=== PATIENT | male | born 1960 | race Caucasian/White ===

== ENCOUNTER → 2018-12-12 | Day surgery (SDC) | payer BC ==
--- NOTE | 2018-12-12 13:39 | RADIOLOGY REPORT (SQ) ---
EXAM DESCRIPTION: PICC INSERTION; FLUORO/CV PLACEMENT; U/S GUIDE FOR VASCULAR ACCESS COMPLETED DATE/TIME: 12/12/2018 1:12 pm REASON FOR STUDY: ACTINOMYCOSIS (A42.9), EXTRNOD MRGNL ZN B-CELL LYMPH OF MUCOSA-ASSOC LYMPHO A42.9 ACTINOMYCOSIS, UNSPECIFIED C88.4 EXTRNOD MRGNL ZN B-CELL LYMPH OF MUCOSA-ASS[place] LYMPHOID COMPARISON: None. FLUOROSCOPY TIME: 0.08 seconds 2 images saved to PACS. TECHNIQUE: Fluoroscopic and ultrasound guided PICC placement. LIMITATIONS: None. PROCEDURE: After written consent and assessment were obtained, the patient was brought into the fluo roscopy room and placed supine on the table. Ultrasound evaluation of potential access sites were per formed. After successfully identifying a patent right brachial vein, the right arm was prepped and dr aped in a sterile fashion along with the ultrasound probe. The entry site was anesthetized with 1% li docaine. A 21 gauge 7 cm needle was advanced through the skin and into the brachial vein under live u ltrasound guidance. An ultrasound image was saved to PACS confirming access site. A .018 guide wire was then inserted through the needle and into the venous system. The needle was then removed and an 11 blade scalpel was used to make a 1cm skin incision. A 5 fr peel-away sheath was advanced over the wire and into the venous system. A measurement was then made using the existing wire and live fluoro scopic guidance. The wire was then removed and trimmed. The PICC was advanced through the peel-away s arabella and into the venous system. The peel-away sheath was removed and the catheter was adhered to th e patients arm with a stat lock. The catheter was then aspirated and flushed and a sterile bandage wa s placed over the access site. A fluoroscopic spot image was saved to PACS confirming the catheter t ip within the superior vena cava. IMPRESSION: SUCCESSFUL PLACEMENT OF A 5 FR DUAL LUMEN 34 CM PICC IN THE RIGHT BRACHIAL VEIN. COMMENT: Patient medication list reviewed: Yes- Quality ID# 130:Eligible professional attests to doc umenting in the medical record they obtained, updated, or reviewed the patient's current medications. . Quality ID 145: Final reports for procedures using fluoroscopy that document radiation exposure angle ariela, or exposure time and number of fluorographic images (if radiation exposure indices are not avail able) Quality ID #76: The patient was prepped and draped using maximum sterile barrier technique including cap, mask, sterile gown, sterile gloves, a large sterile sheet, hand hygiene, and 2% Chlorhexidine fo r cutaneous antisepsis. When ultrasound is used, sterile ultrasound techniques are followed requiring sterile gel and sterile probes. TECHNICAL DOCUMENTATION: JOB ID: [id number] [employer]- All Rights Reserved rev-10/04 Reading location - IP/workstation name: [email or web address]
== END ==
LOC: RAD 12:09
PROVIDERS: ATTEND Internal Medicine Infectious Disease
DX: A42.9 Actinomycosis, unspecified (principal); C88.4 Extranodal marginal zone B-cell lymphoma of mucosa-associated lymphoid tissue [MALT-lymphoma]
CPT/HCPCS: 36569; 77001; 76937; J1642